=== PATIENT | male | born 1970 | race Hispanic/Latino ===

== ENCOUNTER 2020-01-22 08:46 | Emergency (ER) | payer BC, SELFPAY ==
[2020-01-22 09:14] VITALS: BP 148/96; PULSE 98; RESP 16; TEMP 37.4; O2SAT 98
--- NOTE | 2020-01-22 09:17 | ED.WOUNDLAC ---
HPI - Wound/Laceration General Chief Complaint: Wound/Laceration Stated Complaint: injury Time Seen by Provider: 01/22/20 09:17 Source: patient Mode of arrival: ambulatory Limitations: no limitations History of Present Illness HPI narrative: Og Dean is a 49 yo male with no PMH who comes with a 14 hr old laceration that happened last night with a polishing wheel setter knife, Controlled bleeding Related Data Allergies Allergy/AdvReac Type Severity Reaction Status Date / Time No Known Allergies Allergy Unverified 01/14/12 13:19 Review of Systems Review of Systems: Narrative: CONSTITUTIONAL: Denies fever, chills, sweats. EYES: Denies visual changes, redness, discharge. ENT: Denies rhinorrhea, congestion, sore throat, otalgia. CARDIOVASCULAR: Denies chest pain, palpitations, edema. RESPIRATORY: Denies dyspnea, wheezing, cough GASTROINTESTINAL: Denies abdominal pain, nausea, vomiting, diarrhea. GENITOURINARY: Denies dysuria, hematuria, abnormal discharge SKIN: Denies rash or itching. Laceration right second finger 3 cm jagged, small nonsuturable LAC third finger NEUROLOGIC: Denies numbness, or focal weakness. PSYCHIATRIC: Denies anxiety or depression. [facility] Family History Family History Other No active medical problems Social History Social History (Updated 01/22/20 @ 09:49 by Carly Murcia CNP) Smoking status: Never smoker Alcohol intake: current Comments At time of signature, I agree with nursing past medical, surgical, social and family history. There is no relevant family history pertinent to the presenting complaint. Exam Narrative: Exam Narrative: GENERAL: This is a well-nourished, well-developed patient, in mild distress. HEAD: normocephalic, atraumatic. EYES: Sclera clear/white. Vision is grossly intact. EARS: External ears normal, Hearing grossly intact. NOSE: External nose normal without nasal discharge, nares without redness, no rhinorrhea. THROAT: Mucous membranes moist, NECK: Neck supple, non-tender CARDIOVASCULAR: Regular rate and rhythm without murmurs, gallops, or rubs. RESPIRATORY: Clear to auscultation. Breath sounds equal bilaterally. No wheezes, rales, or rhonchi. GASTROINTESTINAL: Abdomen soft, SKIN: warm, intact with no suspicious lesions or rash, good texture and turgor. Laceration to right second and third finger second is a jagged 3 cm centimeter laceration, controlled with NEURO: awake, alert, and oriented to person, place and time. There were no obvious focal neurologic abnormalities. Steady gait EXTREMITIES: Normal range of motion. BACK: Nontender without deformity Course Course Emergency Course: Laceration repair to R finger 2, finfer 3 ,5 cm, no repair, bandaid applied started on Keflex because of dirt in wound and wound as well as length of time since laceration occurred Vital Signs Vital signs: Vital Signs Temperature 99.3 F 01/22/20 09:14 Pulse Rate 98 01/22/20 09:14 Respiratory Rate 16 01/22/20 09:14 Blood Pressure 148/96 H 01/22/20 09:14 Pulse Oximetry 98 01/22/20 09:14 Temperature 99.3 F 01/22/20 09:14 Pulse Rate 98 01/22/20 09:14 Respiratory Rate 16 01/22/20 09:14 Blood Pressure 148/96 H 01/22/20 09:14 Pulse Oximetry 98 01/22/20 09:14 Procedures Laceration Laceration 1: Time: 09:35 Site: hand Side (If applicable): right Size (cm): 3.5 Description: flap Depth: simple, single layer Local Anesthetic: lidocaine 1% Pre-repair: irrigated ====== Skin Level ====== Skin layer closed with: vicryl Size (cm): 4-0 Number of sutures: 6 Technique: simple, interrupted ====== Subcutaneous Layer ====== ====== Muscle Layer ====== ====== Tendon Layer ====== Dressing: pressure dressing MDM - Wound/Laceration Differential Diagnosis Differential diagnosis: Likely laceration, abr
== END 2020-01-22 10:06 | disposition home or self-care (01) ==
PROVIDERS: Emergency Provider Nurse Practitioner
DX: S61.210A Laceration without foreign body of right index finger without damage to nail, initial encounter (principal); W26.0XXA Contact with knife, initial encounter
CPT/HCPCS: 12002; 99213; G0463

== ENCOUNTER 2025-07-08 10:56 | Emergency (ER) | payer BC, SELFPAY ==
--- NOTE | ~2025-07-08 | XR_ITS ---
Examination: XR chest 2V Clinical History: dry cough x 3 weeks Comparison: None Technique: PA and Lateral Findings: Cardiomediastinal silhouette normal size and configuration. Lungs clear. No acute bony abnormality. IMPRESSION: 1. No acute cardiopulmonary findings. Reviewed, dictated and finalized at location [facility]
[2025-07-08 11:05] VITALS: BP 146/84; PULSE 80; RESP 16; TEMP 36.6; O2SAT 98
--- NOTE | 2025-07-08 11:18 | ED_ITS ---
HPI - URI/Sore Throat General Chief Complaint: Upper Respiratory Infection Stated Complaint: cough Time Seen by Provider: 07/08/25 11:10 Source: patient and family Mode of arrival: ambulatory Limitations: no limitations History of Present Illness HPI Narrative: Og is a 54-year-old male patient presenting to the clinic today with complaints of a cough, nasal congestion, and postnasal x3 weeks. Denies any chest pain or shortness of breath. Cough is nonproductive. Has taken ppew-acc-iyfzglb cough and cold medicines without much relief. Denies fevers, chills, body aches. Patient is a nonsmoker. Related Data Home Medications ?Medication ?Instructions ?Recorded ?Confirmed ?Last Taken ?Type amlodipine 5 mg tablet mg 07/08/25 Unknown History fenofibrate 54 mg tablet mg 07/08/25 Unknown History Allergies Allergy/AdvReac Type Severity Reaction Status Date / Time No Known Allergies Allergy Verified 07/08/25 10:59 Review of Systems Review of Systems: Pertinent positives per HPI. Patient denies any fever, chills, rash, headache, visual changes, dizziness, shortness of breath, chest pain, palpitations, nausea, vomiting, diarrhea, constipation, abdominal pain, or any urinary issues. [facility] Family History Family History Other No active medical problems Social History Social History Smoking status: Never smoker Alcohol intake: current Comments At the time of my signature, I reviewed and agree with the nursing past medical, surgical, social, and family history. There is no relevant family history pertinent to the patient complaint. Exam Narrative: General: Well-developed, well nourished, in no apparent distress Head: Normocephalic, atraumatic Eyes: Pupils equally round and reactive to light bilaterally, EOM intact, sclera and conjunctive clear, no discharge, lids normal Ears: TMs intact and clear, ear canals clear, no drainage, grossly hearing normal. Nose: Nares patent, clear discharge, no inflammation, no sinus tenderness. Mouth: Oral pharynx without lesions or masses, good dentition, MMM. Postnasal drip Neck: Supple, trachea midline, no enlargement of anterior or posterior cervical nodes, no thyroid masses or goiter palpable. Cardio: Regular rate and rhythm, s1 and s2 normal, no murmur appreciated. Resp: Clear to auscultation bilaterally, no rhonchi, rales, wheezing or rubs Course Course Level of Care: Express Care Visit Vital Signs Vital signs: Vital Signs Temperature 36.6 C 07/08/25 11:05 Pulse Rate 80 07/08/25 11:05 Respiratory Rate 16 07/08/25 11:05 Blood Pressure 146/84 H 07/08/25 11:05 Pulse Oximetry 98 07/08/25 11:05 Temperature 36.6 C 07/08/25 11:05 Pulse Rate 80 07/08/25 11:05 Respiratory Rate 16 07/08/25 11:05 Blood Pressure 146/84 H 07/08/25 11:05 Pulse Oximetry 98 07/08/25 11:05 MDM MDM Narrative Medical decision making narrative: At the time of visit patient is resting comfortably on the exam table. Patient appears to be nontoxic. Complaints of a cough, nasal congestion, and postnasal x3 weeks. Denies any chest pain or shortness of breath. Cough is nonproductive. Has taken [id number]-vhzflgh cough and cold medicines without much relief. Denies fevers, chills, body aches. Patient is a nonsmoker. On exam patient has bilateral TMs intact and clear, clear nasal drainage, no anterior turbinate inflammation, oral pharynx with postnasal drip, no cervical lymphadenopathy, heart rates regular rate and rhythm, lung sounds are clear. Chest x-ray was ordered Diagnostics: Chest x-ray was negative for any acute cardiopulmonary process. Plan: I suspect patient has allergic rhinitis with postnasal drip. Prescriptions for Zyrtec and Flonase was sent to the pharmacy. Supportive measures were discussed with the patient and they voiced understanding discharge instructions and agrees to treatment plan. Return precautions reviewed Differential Diagnosis Differential Diagnosis: Differential diagnostic considerations for upper respiratory infection include upper respiratory infection, croup, otitis media, sinusitis, viral infection, bronchitis, influenza, pharyngitis, strep, uvulitis. Imaging Data Radiologist's impression: ITS Impressions Chest X-Ray 07/08/25 11:29 IMPRESSION: 1. No acute cardiopulmonary findings. Discharge Plan Discharge Clinical Impression: Allergic rhinitis with postnasal drip Patient Disposition: Home Condition: Stable Instructions: Antibiotic Form, Allergies (ED), Postnasal Drip (DC) Additional Instructions: Chest x-rays negative for any acute cardiopulmonary process. Take prescription medications only as prescribed Increase fluids and stay well hydrated May take Tylenol or motrin as directed on bottle for pain/fever May use Flonase 1 spray in each nare daily May take OTC antihistamines such as Zyrtec or Claritin daily as directed on bottle Go to the ED if you develop a worsening in your condition- high fever not controlled by Tylenol or Motrin, dehydration, weakness, lethargy, shortness of breath, or chest pain. Follow up with your PCP in 3-5 days if symptoms persist. Radiograf?as de t?rax negativas para cualquier proceso cardiopulmonar stephane. [place] los medicamentos recetados solo seg?n lo prescrito. Aumente la ingesta de l?quidos y mant?ngase randy hidratado. Puede kimmie Tylenol o Motrin seg?n las indicaciones del envase para el dolor y la fiebre. Puede usar Flonase, roel aplicaci?n en cada fosa nasal al d?a. Puede kimmie antihistam?nicos de venta radha micaela Zyrtec o Claritin a diario, seg?n las indicaciones del envase. Acuda a urgencias si montalvo condici?n empeora: fiebre elyssa que no se controla con Tylenol o Motrin, deshidrataci?n, debilidad, letargo, dificultad para respirar o dolor en el pecho. Consulte con montalvo m?dico de cabecera en 3 a 5 d?as si los s?ntomas persisten. Patient Language: Gabonese Prescriptions: New fluticasone propionate [Flonase Allergy Relief] 50 mcg/actuation spray,suspension 1 spray intranasal DAILY 30 Days Qty: 16 0RF Rx Instructions: administer into each nostril Zyrtec 10 mg capsule 10 mg PO DAILY 30 Days Qty: 30 0RF No Action amlodipine 5 mg tablet fenofibrate 54 mg tablet Follow-up/Referrals: UNKNOWN,DOCTOR [Primary Care Provider] Time of Disposition: 11:48 Quality NIHSS Nursing Documentation ED NIHSS nursing documentation: reviewed/agree
== END 2025-07-08 11:52 | disposition home or self-care (01) ==
PROVIDERS: Emergency Provider Nurse Practitioner Family
DX: J30.89 Other allergic rhinitis (principal); R05.9 Cough, unspecified; R09.81 Nasal congestion; R09.82 Postnasal drip
CPT/HCPCS: 71046; 99213; G0463